=== PATIENT | female | born 1940 | race Caucasian/White ===

== ENCOUNTER 2020-12-03 16:31 | Emergency (ER) | payer MEDICARE, OTHER, SELFPAY ==
[2020-12-03 16:45] VITALS: BP 175/51; PULSE 51; RESP 12; TEMP 36.1; O2SAT 100
[2020-12-03 16:47] VITALS: BP 175/51; PULSE 51; RESP 12; TEMP 36.1; O2SAT 100
--- NOTE | 2020-12-03 16:48 | ED.EYEPROB ---
HPI - Eye Problem General Chief complaint: Eye Problems Stated complaint: Eye pain Time Seen by Provider: 12/03/20 16:49 Source: patient and RN notes reviewed Mode of arrival: ambulatory Limitations: no limitations History of Present Illness HPI Narrative: 80 year old female who presents to [facility] with complaints of bilateral eye itching and burning. Patient states that she has had allergies in her eyes for the past couple of weeks and received [place] eye drops from eye doctor at [facility]. She states that she now has the burning and itching in her eyes. Patient denies any sharp pain in her eyes, no changes in her vision or any morning crusting noted, has some watering of her eyes. Patient does admit to history of seasonal allergies and is taking daily Zyrtec and Pepcid.Patient has no redness of sclera or conjunctival redness. MD chief complaint: other (bilateral eye burning and itching) Onset (ago): week(s) Duration: constant and progressively worsening Location: both eyes Eye Symptoms: burning and itching Treatments Prior to Arrival: OTC eye drops and other (Zyrtec and daily pepcid) Related Data Home Medications Medication Instructions Recorded Confirmed albuterol sulfate [ProAir HFA] INHALATION 12/03/20 amiodarone 12/03/20 amiodarone [Pacerone] 12/03/20 apixaban [Eliquis] mg 12/03/20 cetirizine mg 12/03/20 famotidine 12/03/20 furosemide 12/03/20 insulin glargine [Lantus Solostar SUBCUT 12/03/20 U-100 Insulin] liraglutide [Victoza 3-Zeke] mg SUBCUT 12/03/20 losartan 12/03/20 metoprolol succinate PO 12/03/20 tramadol mg 12/03/20 Allergies Allergy/AdvReac Type Severity Reaction Status Date / Time NONE Allergy Unknown Uncoded 12/29/02 13:01 Review of Systems Review of Systems: Narrative: CONSTITUTIONAL: Denies fever, chills, or sweats EYES: Denies visual changes, redness, or discharge.positive for itching and burning sensation bilateral eyes. ENT: Denies rhinorrhea, congestion, sore throat, or otalgia. CARDIOVASCULAR: Denies chest pain, palpitations, or edema. RESPIRATORY: Denies cough or dyspnea. GASTROINTESTINAL: Denies abdominal pain, nausea, vomiting, or diarrhea. GENITOURINARY: Denies dysuria or hematuria. SKIN: Denies rash or itching. MUSCULOSKELETAL: Denies back pain, joint pain, or myalgia. NEUROLOGIC: Denies headache, numbness, or weakness. PSYCHIATRIC: Denies anxiety or depression. All systems reviewed & are unremarkable except as noted in HPI and below PMFSH Past Medical History Medical History (Updated 12/05/20 @ 10:52 by Ana Luisa Busch NP) Afib Arthritis Asthma CAD (coronary artery disease) Diabetes GERD (gastroesophageal reflux disease) Hypertension Seasonal allergies Surgical History Surgical History (Updated 12/05/20 @ 10:53 by Ana Luisa Busch NP) History of appendectomy History of cholecystectomy History of hysterectomy History of open heart surgery 2 vessel Family History Family History (Updated 12/05/20 @ 10:52 by Ana Luisa Busch NP) Father Acute myocardial infarction Heart disease Grandparent Acute myocardial infarction Heart disease Social History Social History (Updated 12/05/20 @ 10:50 by Ana Luisa Busch NP) Smoking status: Never smoker Alcohol intake: never Substance use: never Living arrangements: with family Gender identity (if verbalized by the patient): Female Exam Narrative: Exam Narrative: GENERAL: Well-appearing, well-nourished, and in no acute distress. HEAD: Normocephalic, atraumatic. EYES: PERRLA and EOMI.No redness of sclera or any conjunctival redness of bilateral eyes, no changes in vision or any acute sharp pain, denies any injury to eye, no feelings of foreign body ENT: Nares mild redness,scant clear rhinorrhea no epistaxis. Mucous membranes moist.TM's normal with good light reflex, no throat redness, lesions or exudates no tonsil enlargement NECK: Supple.no lymphadenopathy. CHEST: Clear to aus
== END 2020-12-03 17:24 | disposition home or self-care (01) ==
PROVIDERS: Emergency Provider Registered Nurse
DX: H10.13 Acute atopic conjunctivitis, bilateral (principal); I48.91 Unspecified atrial fibrillation; M19.90 Unspecified osteoarthritis, unspecified site; J44.9 Chronic obstructive pulmonary disease, unspecified; E11.9 Type 2 diabetes mellitus without complications; K21.9 Gastro-esophageal reflux disease without esophagitis; I10 Essential (primary) hypertension
CPT/HCPCS: 99213; G0463